=== PATIENT | female | born 1945 | race Caucasian/White ===

== ENCOUNTER → 2023-09-10 08:02 | Outpatient (REF) | payer MEDICARE, SELFPAY | LOC: DHCBC/DCA 08:02 | PROVIDERS: ATTENDING PHYSICIAN Internal Medicine Cardiovascular Disease; FAMILY PHYSICIAN Internal Medicine | DX: R06.09 Other forms of dyspnea (principal) | CPT/HCPCS: 78452; 93017; A9500; J2785 ==

== ENCOUNTER → 2023-09-17 13:46 | Outpatient (REF) | payer MEDICARE, SELFPAY | LOC: RCS 13:46 | PROVIDERS: ATTENDING PHYSICIAN Internal Medicine Cardiovascular Disease; FAMILY PHYSICIAN Internal Medicine; OTHER PHYSICIAN Internal Medicine Endocrinology, Diabetes & Metabolism | DX: R06.09 Other forms of dyspnea (principal) | CPT/HCPCS: 93306 ==

== ENCOUNTER → 2023-10-18 12:12 | Outpatient (REF) | payer MEDICARE, SELFPAY | LOC: RAD 12:12 | PROVIDERS: ATTENDING PHYSICIAN Internal Medicine Critical Care Medicine | DX: R06.02 Shortness of breath (principal); Z87.19 Personal history of other diseases of the digestive system | CPT/HCPCS: 71046 ==

== ENCOUNTER → 2023-11-08 11:00 | Outpatient (REF) | payer MEDICARE, SELFPAY | LOC: PAVMRI 11:00 | PROVIDERS: ATTENDING PHYSICIAN Specialist; FAMILY PHYSICIAN Internal Medicine | DX: R51.9 Headache, unspecified (principal) | CPT/HCPCS: 70553; A9575 ==

== ENCOUNTER → 2024-02-28 09:41 | Outpatient (REF) | payer MEDICARE, SELFPAY | LOC: RAD 09:41 | PROVIDERS: ATTENDING PHYSICIAN Internal Medicine; FAMILY PHYSICIAN Internal Medicine | DX: K44.9 Diaphragmatic hernia without obstruction or gangrene (principal) | CPT/HCPCS: 74221 ==

== ENCOUNTER → 2024-03-16 06:31 | Day surgery (SDC) | payer MEDICARE, SELFPAY ==
[2024-03-16 07:50] LABS: Glucose - Point of Care 160 mg/dl (70-99)
== END ==
LOC: GI 06:31
PROVIDERS: ATTENDING PHYSICIAN Internal Medicine
DX: Z12.11 Encounter for screening for malignant neoplasm of colon (principal); K57.30 Diverticulosis of large intestine without perforation or abscess without bleeding; K64.9 Unspecified hemorrhoids; D12.2 Benign neoplasm of ascending colon; D12.3 Benign neoplasm of transverse colon; Q39.9 Congenital malformation of esophagus, unspecified; R93.3 Abnormal findings on diagnostic imaging of other parts of digestive tract; K21.00 Gastro-esophageal reflux disease with esophagitis, without bleeding; K29.50 Unspecified chronic gastritis without bleeding; Z86.010 Personal history of colon polyps
CPT/HCPCS: 45385; 88305; 82962; 88342

== ENCOUNTER → 2024-05-21 14:01 | Outpatient (REF) | payer MEDICARE, SELFPAY | LOC: RAD 14:01 | PROVIDERS: ATTENDING PHYSICIAN Internal Medicine | DX: M54.32 Sciatica, left side (principal) | CPT/HCPCS: 72110 ==

== ENCOUNTER 2024-05-21 19:38 | Emergency (ER) | payer MEDICARE, SELFPAY ==
[2024-05-21 19:38] VITALS: BMI 36.1
[2024-05-21 19:41] VITALS: BP 165/90
[2024-05-21 19:49] LABS: Glucose - Point of Care 429 mg/dl (70-99)
[2024-05-21 20:09] LABS: % Basophils 0.5 % (0-2); % Eosinophils 0.4 % (0-6); % Immature Granulocytes 0.4 % (0-0.5); % Neutrophils 69.7 % (42.2-75.2); Absolute Basophils 0.1 10^3/uL (0-0.2); Absolute Lymphocytes 1.3 10^3/uL (1.2-3.4); Absolute Monocytes 1.9 10^3/uL (0.1-0.6); Absolute Neutrophils 7.7 10^3/uL (1.4-6.5); Hematocrit 38.7 % (37.0-47.0); Hemoglobin 13.3 g/dL (12.0-16.0); Mean Corp Hgb Conc. 34.4 g/dL (33.0-37.0); Mean Corpuscular Hgb 30.7 pg (27.0-31.0); Mean Corpuscular Volume 89.4 fL (81.0-99.0); Mean Platelet Volume 10.5 fL (7.4-10.4); Nucleated Red Blood Cells % 0 %; Platelet Count 171 10^3/uL (130-400); Red Blood Cell Count 4.33 10^6/uL (4.20-5.40); Red Cell Dist. Width 12.9 % (11.5-14.5); White Blood Cell Count 11.1 10^3/uL (4.8-10.8)
[2024-05-21 20:44] LABS: ALT (SGPT) 21 U/L (0-35); AST (SGOT) 22 U/L (14-36); Albumin 4.2 g/dl (3.5-5.0); Alkaline Phosphatase 49 U/L (38-126); Blood Urea Nitrogen 29 mg/dl (7-17); Calcium 10.1 mg/dl (8.4-10.2); Carbon Dioxide 22 mmol/L (22-30); Chloride 97 mmol/L (98-107); Glucose 419 mg/dl (70-99); Potassium 4.4 mmol/L (3.5-5.1); Sodium 134 mmol/L (135-145); Total Bilirubin 1.7 mg/dl (0.2-1.3); Total Protein 6.5 g/dl (6.3-8.2); eGFR 51.75
[2024-05-21 21:00] VITALS: BP 134/76
--- NOTE | 2024-05-21 21:35 | ED.GENMED ---
History of Present Illness
General
Chief Complaint: Blood Sugar Problem
Source: patient
Exam Limitations: none
Time Seen by Provider: 05/21/24 21:07
History of Present Illness
History of Present Illness:
This is a 79 year old female that comes in with c/o elevated blood sugar. States that all week she has had left sided sciatic pain. States that it was going down the left leg. States that 10-12 days before it was her right sided and that is fine
know. State that she went to the Chiropractor and this helped. States that she has lower back pain with pain now mostly in her glut. States that it is not going down her leg any more. State that occasionally she has take Tylenol which she took at
4pm. States that all week her blood sugar has been elevated and the lowest that she could get it was 350. States that her temp was low grade at 99.8 and she had chills yesterday. States that she is SOB with walking and a slight headache. Denies any
chest pain, cough, abd pain, nausea, vomiting, diarrhea, dizziness, urinary burning.
Past History
Past History
ED Past Medical History: None, COPD, GERD, HTN, Hypercholesterolemia, IDDM, Psychiatric (depressioin) and Other (Numbness arms and legs. Hiatal hernia, Osteopenia)
ED Past Surgical History: Cholecystectomy, Gynecological (Tubal ligation) and Orthopedic (Knee replacement bilateral, right rotator cuff repair)
Social History
Tobacco: Non-smoker
Alcohol: Daily (wine 1)
Drug: None
Personal:
Living: with family
Employment: Employed
Review of Systems
Review of Systems
All Other Systems: ROS reviewed and negative except as documented in HPI and ROS
Constitutional: Reports fever (low grade) and chills
EENT: Reports no symptoms
Respiratory: Reports trouble breathing (with walking); Denies cough
Cardiac: Reports no symptoms; Denies chest pain
ABD/GI: Reports no symptoms; Denies abdominal pain, nausea, vomiting or diarrhea
: Reports no symptoms; Denies dysuria, frequency or urgency
Musculoskeletal: Reports back pain (Left low back pain)
Skin: Reports no symptoms
Neurological: Reports headache (Slight); Denies dizzy
Psychiatric: Reports no symptoms
Phy Exam
General Physical Exam
General Presentation: mild distress
General age: appears stated age
General Skin: warm and dry
General Habitus: elderly
General Mental: alert
General Hydration: dry mucous membranes
ENT Exam
ENT Exam: TM's normal, pharynx normal and neck supple
Eye Exam
Eye Exam: EOMI
Cardiovascular Exam
Cardiovascular Exam: regular rate/rhythm, no edema and normal peripheral pulses
Pulmonary Exam
Pulmonary Exam: lungs clear, no respiratory distress, no rales, chest non tender, no crackles, no rhonchi, no wheezing and no cough
Gastrointestinal Exam
Gastrointestinal Exam: normal bowel sounds, non tender, soft, no organomegaly, no pulsatile mass and non distended
Musculoskeletal Exam
Musculoskeletal Exam: full ROM, back pain (Left lower tenderness with palpation lateral to the spine) and no edema
Skin Exam
Skin Exam: normal color, warm/dry, no rash and no petechia
Psychiatric Exam
Psychiatric Exam: normal mood/affect
Course
Orders/Labs/Results
Orders:
Orders
05/21/24 19:59
C-Reactive Protein Urgent
Comment: ADDON
Complete Blood Count/With Diff Urgent
Comprehensive Metabolic Panel Urgent
Erythrocyte Sed Rate Urgent
Comment: ADDON
05/21/24 21:35
0.9% Sodium Chloride 1000 ml [Nss] 1,000 ml IV BOLUS
CR Chest - 2 Views Urgent
Comment:
Reason For Exam: SOB
05/21/24 21:36
Add On- LAB Urgent
Tests Added?: sed rate, CRP
05/21/24 21:48
Insulin Aspart [NOVOLOG vial] 14 units SC NOW STA
05/21/24 21:50
CT Lumbar Spine W/ Iv Contrast Urgent
Comment: Blood sugars elevated. fever's
Reason For Exam: Low back pain, Left sided
05/21/24 21:54
Urinalysis Reflex To Culture Urgent
Date Specimen was Collected: 05/21/24
Time Specimen was Collected: 21:42
Urine Microscopic Reflex Cult Urgent
Urine Culture Urgent
EILEEN Source: U
Specimen Description:
Date Specimen was Collected: 05/21/24
Time Specimen was Collected: 21:42
05/21/24 23:03
Urinalysis Reflex To Culture Urgent
Date Specimen was Collected: 05/22/24
Time Specimen was Collected: 00:35
05/22/24 00:51
Urine Microscopic Reflex Cult Urgent
05/22/24 00:55
Acetaminophen [Tylenol] 1,000 mg PO NOW STA
Ketorolac [Toradol] 15 mg IV NOW STA
Abnormal Lab Results
05/21/24 05/21/24 05/21/24
19:47 19:59 21:51
WBC 11.1 H 10^3/uL
(4.8-10.8)
MPV 10.5 H fL
(7.4-10.4)
Absolute Neuts (auto) 7.7 H 10^3/uL
(1.4-6.5)
Absolute Monos (auto) 1.9 H 10^3/uL
(0.1-0.6)
Lymphocytes % 12.0 L %
(20.5-51.1)
Monocytes % 17.0 H %
(1.7-9.3)
ESR 27 H mm/hour
(0-20)
Sodium 134 L mmol/L
(135-145)
Chloride 97 L mmol/L
(98-107)
BUN 29 H mg/dl
(7-17)
Creatinine 1.1 H mg/dL
(0.6-1.0)
Glucose 419 H mg/dl
(70-99)
Total Bilirubin 1.7 H mg/dl
(0.2-1.3)
C-Reactive Protein 67.80 H mg/L
(0.0-10.00)
Urine Ketones
Ur Occult Blood Reflex
Leukocyte Esterase Rfl
Urine WBC (Reflex)
Urine Bacteria (Reflex)
Urine Glucose
POC Glucose 429 H mg/dl 196 H mg/dl
(70-99) (70-99)
05/21/24 05/22/24
21:54 00:51
WBC
MPV
Absolute Neuts (auto)
Absolute Monos (auto)
Lymphocytes %
Monocytes %
ESR
Sodium
Chloride
BUN
Creatinine
Glucose
Total Bilirubin
C-Reactive Protein
Urine Ketones 2+ A 1+ A
(Negative) (Negative)
Ur Occult Blood Reflex Trace A
(Negative)
Leukocyte Esterase Rfl 2+ A Trace A
(Negative) (Negative)
Urine WBC (Reflex) 30-40 A /HPF
(0-5)
Urine Bacteria (Reflex) Few A Few A
(Negative) (Negative)
Urine Glucose 3+ A Trace A
(Negative) (Negative)
POC Glucose
05/21/24 19:59
05/21/24 19:59
Leukocytosis, Dehydration. hyperglycemia. Total chauncey elevated. Anion gap 15, sed rate 23, CRP 67.80 ( will adjust for age), repeat urine negative for infection.
Vital Signs
Initial and Last Documented VS:
Initial Vital Signs
Temp Pulse Resp BP Pulse Ox
99.6 F 108 18 165/90 94
05/21/24 19:41 05/21/24 19:41 05/21/24 19:41 05/21/24 19:41 05/21/24 19:41
Last Documented Vital Signs
Temp Pulse Resp BP Pulse Ox
99.6 F 75 16 146/66 96
05/21/24 19:41 05/21/24 22:00 05/21/24 22:00 05/22/24 00:00 05/22/24 00:30
MDM/Problems Addressed
Differential Diagnosis Includes:
Urinary tract infection. uncontrol diabetic
MDM/Problems Addressed:
This is a 79 year old female that comes in with c/o left low back pain. States that it started on the right sided and then moved to the left. states that her blood sugars have been elevated all week and she was unable to get them down any lower then
350.
will check labs. give IV fluids. CT lumbar spine, and Insulin
back into see patient. Patient Blood sugar is down to 199. Explained to patient that her blood work shows dehydrated. Her CT scan shows a lot of degenerative changes. Will have patient follow up with the placement specialist. Will have patient use
Tylenol 1000mg every 6 hours for pain and will sent a prescription to her pharmacy for Oxycodone 5mg. patient to return with any concerns .
Chronic conditions affecting care: DM
Acute Exacerbation and/or Progression of Chronic Illness: DM
*Radiology
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 )
*Pulse Oximetry
Patient hypoxic: no
*EKG
Interpreted by ED Provider?: NA
Rate: EKG- N/A
*Wire Strander Interpretation
Rate: Wire Strander- N/A
*Critical Care Note
Total Time (30-74mins, 75-104mins- exclusive of procedures): Not Applicable
ED Attending Note
-
Portions of this chart may have been created with voice recognition software.� Occasional wrong word or��sound alike� substitutions may have occurred due to the inherent limitations of voice recognition software.
Discharge Plan
Departure
Patient Disposition: Home (Routine Discharge)
Date of Disposition: 05/22/24
Time of Disposition: 02:05
Patient with high blood pressure during this ER visit?: Yes
Condition: Good
Covid-19: Not Applicable
Discharge Problem:
Low back pain
Instructions: Low Back Pain (DC), BLOOD PRESSURE
Prescriptions:
New
oxycodone 5 mg tablet
5 mg PO Q6H PRN (Reason: Pain) Qty: 10 0RF
No Action
cephalexin 500 MG capsule
500 mg PO TID Qty: 21 0RF
Referrals:
Nelson Amaya MD [Active] - Follow up in 10 days
Dante Shore MD [Family Provider] - Follow up in 2-3 days
Activity Restrictions/Additional Instructions:
As discussed, your blood work shows that you are dehydrated. Please increase your water intake to 8-8oz glasses daily. This will also help to keep your blood sugar down. Your CT of the lumbar spine shows a lot of degenerative changes. Please follow
up with the placement specialist for further evaluation and treatment. You may use Tylenol 1000mg every 6 hours for pain and a Prescription for a Narcotic pain medication has been sent to your Pharmacy. This may make you a little sleepy so move
slow when getting up. IF YOU HAVE INCREASED OR CHANGING PAIN, OR YOU HAVE ANY OTHER CONCERNS PLEASE RETURN TO THE EMERGENCY ROOM.
Interventions
Interventions:
*Risk Screen - Suicide Last Done: 05/21/24 19:41
*General Assessment Last Done: 05/21/24 19:41
*Neglect/Abuse Screening Last Done: 05/21/24 19:41
ED- Fall Risk Assessment Last Done: 05/21/24 21:20
*ED COVID-19 Vaccine History Last Done: 05/21/24 19:41
ED- Neurological Assessment Last Done: 05/21/24 21:20
Discharge Date and Time
Print Language: [email or web address]
[2024-05-21 21:49] LABS: Erythrocyte Sed Rate 27 mm/hour (0-20)
[2024-05-21] MEDS: NSS 1000 IV (21:55)
[2024-05-21 21:57] LABS: Glucose - Point of Care 196 mg/dl (70-99)
[2024-05-21 22:00] VITALS: BP 126/76
[2024-05-21 22:09] LABS: Urine Albumin Trace (Neg - Trace); Urine Bilirubin Negative (Negative); Urine Character Slightly Cloudy (Clear); Urine Color Yellow; Urine Glucose 3+ (Negative); Urine Ketone 2+ (Negative); Urine Leukocyte 2+ (Negative); Urine Nitrite Negative (Negative); Urine Occult Blood Trace (Negative); Urine Urobilinogen Negative (Neg - 1+)
[2024-05-21 22:30] LABS: Urine Bacteria Few (Negative); Urine Red Blood Cell 0-2 /HPF (0-2); Urine Squamous Cell >30 /LPF (Few); Urine White Cell 30-40 /HPF (0-5)
[2024-05-21 22:54] VITALS: BP 138/69
[2024-05-21 23:48] VITALS: BP 153/60
[2024-05-22] VITALS: BP 146/66
[2024-05-22 01:04] LABS: Urine Albumin Trace (Neg - Trace); Urine Bilirubin Negative (Negative); Urine Character Clear (Clear); Urine Color Yellow; Urine Glucose Trace (Negative); Urine Ketone 1+ (Negative); Urine Leukocyte Trace (Negative); Urine Nitrite Negative (Negative); Urine Occult Blood Negative (Negative); Urine Urobilinogen Negative (Neg - 1+)
[2024-05-22] MEDS: TYLENOL 1000 MG PO (01:04)
[2024-05-22] MEDS: TORADOL 15 MG IV (01:04)
[2024-05-22 01:47] LABS: Urine Amorphous Seen; Urine Bacteria Few (Negative); Urine Red Blood Cell 0-2 /HPF (0-2); Urine Squamous Cell 21-25 /LPF (Few)
[2024-05-22 02:05] VITALS: BP 154/64
[2024-05-22] MEDS: ROXICODONE 5 MG PO (02:13)
== END 2024-05-22 02:20 | disposition home or self-care (01) ==
LOC: EMR 19:38
PROVIDERS: Clinical Nurse Specialist Family Health; Emergency Medicine; EMERGENCY PHYSICIAN Emergency Medicine; FAMILY PHYSICIAN Internal Medicine
DX: M54.50 Low back pain, unspecified (principal); E11.65 Type 2 diabetes mellitus with hyperglycemia; I10 Essential (primary) hypertension; E86.0 Dehydration
CPT/HCPCS: 99285; 96374; 96361 ×4; 71046; 72132; 80053; 81003; 81015; 82962; 85025; 85652; 86140; 87086

== ENCOUNTER → 2024-06-10 22:00 | Outpatient (REF) | payer MEDICARE, SELFPAY | LOC: DHSLP 22:00 | PROVIDERS: ATTENDING PHYSICIAN Internal Medicine Critical Care Medicine; FAMILY PHYSICIAN Internal Medicine | DX: G47.33 Obstructive sleep apnea (adult) (pediatric) (principal); R09.02 Hypoxemia | CPT/HCPCS: 95800 ==

== ENCOUNTER → 2024-07-27 10:24 | Outpatient (REF) | payer MEDICARE, SELFPAY | LOC: WDC 10:24 | PROVIDERS: ATTENDING PHYSICIAN Internal Medicine | DX: Z12.31 Encounter for screening mammogram for malignant neoplasm of breast (principal) | CPT/HCPCS: 77063; 77067 ==

== ENCOUNTER → 2024-09-22 14:11 | Outpatient (REF) | payer MEDICARE, SELFPAY | LOC: PAVMRI 14:11 | PROVIDERS: ATTENDING PHYSICIAN Physician Assistant; FAMILY PHYSICIAN Internal Medicine | DX: M54.16 Radiculopathy, lumbar region (principal); M43.16 Spondylolisthesis, lumbar region | CPT/HCPCS: 72148 ==

== ENCOUNTER → 2025-07-30 10:05 | Outpatient (REF) | payer MEDICARE, SELFPAY | LOC: WDC 10:05 | PROVIDERS: ATTENDING PHYSICIAN Internal Medicine | DX: Z12.31 Encounter for screening mammogram for malignant neoplasm of breast (principal) | CPT/HCPCS: 77063; 77067 ==